=== PATIENT | male | born 1995 ===

== ENCOUNTER 2016-10-07 16:05 | Emergency (ER) | payer SELFPAY ==
--- NOTE | 2016-10-07 18:08 | UC ---
Back Pain HPI - History of Current Complaint Chief Complaint: UCBackPain Stated Complaint: BACK INJURY W/C Time Seen by Provider: 10/07/16 18:02 Hx Obtained From: Helmet Binder Onset/Duration: Sudden Onset - fell 1 week ago, Still Present Severity Initially: Severe Severity Currently: Moderate Back Pain: Is Discrete @ - low back left side and left middle upper back with bending over. Aggravating: Movement, Bending, Walking Alleviating: Rest Associated Signs And Symptoms: Positive: Negative - Allergies/Home Medications Allergies/Adverse Reactions: Allergies Allergy/AdvReac Type Severity Reaction Status Date / Time No Known Allergies Allergy Verified 10/07/16 17:37 PMH/Surg Hx/FS Hx/Imm Hx Previously Healthy: Yes Endocrine History Of: Denies: Thyroid Disease Cardiovascular History Of: Denies: Hypertension Respiratory History Of: Denies: Asthma - Surgical History Surgical History: None - Family History Known Family History: Negative: Cardiac Disease, Hypertension, Diabetes - Social History Occupation: Employed Full-time Lives: With Family Alcohol Use: None Substance Use Type: None Smoking Status (MU): Never Smoked Tobacco Have You Smoked in the Last Year: No Review of Systems Musculoskeletal: Arthralgia, Myalgia All Other Systems Reviewed And Are Negative: Yes Physical Exam Triage Information Reviewed: Yes Appearance: Well-Appearing, No Pain Distress, Well-Nourished Vital Signs: Initial Vital Signs Temp 98.0 F 10/07/16 17:27 Pulse 61 10/07/16 17:27 Resp 18 10/07/16 17:27 BP 135/53 10/07/16 17:27 Pulse Ox 100 10/07/16 17:27 Vital Signs Reviewed: Yes Eyes: Positive: Conjunctiva Clear Neck exam: Normal Respiratory Exam: Normal Cardiovascular Exam: Normal Musculoskeletal: Positive: Strength Intact, ROM Limited @ - back extension with pain, Other: - Tender Left SI and sacrum along with lower thoracic paraspinal muscles. Neurological Exam: Normal - DTR 2+ symmetric patella and achilles Psychological Exam: Normal Skin Exam: Normal Back Pain Course/Dx - Differential Dx/Diagnosis Differential Diagnosis/HQI/PQRI: Fracture, Strain Provider Diagnoses: Sacroiliitis. Contusion back Discharge - Discharge Plan Condition: Stable Disposition: HOME Prescriptions: Naproxen [Naproxen 500 MG TABS] 500 mg PO BID PRN #60 tab PRN Reason: Pain - Back Patient Education Materials: Sacroiliitis (ED), Contusion in Adults (ED), Naproxen (By mouth) Additional Instructions: Please follow up with a chiropractor on Sunday.
--- NOTE | 2016-10-07 18:46 | RAD ---
Indication: Back injury. 5 views of lumbar spine are reviewed. The vertebral bodies appear normal in height. Disc spaces all well-preserved. The pedicles appear intact. Spinal canal appears to be intact. IMPRESSION: No fracture of the lumbar spine is noted.
[2016-10-07] MEDS ORDERED: Naproxen TAB* 250 MG PO ONE (18:51)
[2016-10-07 19:15] VITALS: BP 136/50
== END 2016-10-07 19:21 | disposition home or self-care (01) ==
LOC: UCCORT 16:05
DX: M46.1 Sacroiliitis, not elsewhere classified (principal); S30.0XXA Contusion of lower back and pelvis, initial encounter; W01.0XXA Fall on same level from slipping, tripping and stumbling without subsequent striking against object, initial encounter
CPT/HCPCS: 72110; 99202; A9270-GY; G0463

== ENCOUNTER 2017-12-04 10:59 | Emergency (ER) | payer SELFPAY ==
[2017-12-04 12:09] VITALS: BP 122/59
--- NOTE | 2017-12-04 12:34 | RAD ---
INDICATION: Left testicular pain COMPARISON: None TECHNIQUE: Duplex interrogation of the scrotum was performed. FINDINGS: Testicles: The testicles are Normal in size and echogenicity. There is no evidence of testicular mass. There is symmetric flow on Doppler interrogation. There is no evidence of torsion.. The right testis measures 4.1 x 2.2 x 3.0 cm and the left 3.9 x 2.3 x 2.9 cm. There is symmetric flow on Doppler interrogation. Epididymides: There is no evidence of an epididymal mass. The epididymides are normal in size. There is symmetric flow on Doppler interrogation. The right epididymal head measures 1.5 x 1.3 cm and the left 1.2 x 1.2 cm. Hydroceles: None. Varicoceles: None. Other: None. IMPRESSION: NORMAL STUDY.
--- NOTE | 2017-12-04 12:36 | UC ---
Complaint Male HPI - HPI Summary HPI Summary: left testicular pain / left lower abdominal pain pain radiates to left testicle , + dysuria no fever, no chills , no n/v/d/c , no hernia, no known injury pt. does heavy work - History of Current Complaint Chief Complaint: UCGU Stated Complaint: PAIN IN LEFT LEG Time Seen by Provider: 12/04/17 11:42 Hx Obtained From: Patient Onset/Duration: Gradual Onset, Lasting Days - 2, Still Present Timing: Constant Severity Initially: Severe Severity Currently: Moderate Pain Intensity: 9 Location: Testicle - left Character: Burning Aggravating Factor(s): Nothing Alleviating Factor(s): Nothing Associated Signs And Symptoms: Positive: Dysuria. Negative: Diaphoresis, Back Pain, Fever, Hematuria, Constipation, Blood in Stool, Rectal Pain, Appetite, Nausea, Vomiting(# Of Episodes =), Penile Swelling, Penile Discharge - Allergies/Home Medications Allergies/Adverse Reactions: Allergies Allergy/AdvReac Type Severity Reaction Status Date / Time No Known Allergies Allergy Verified 12/04/17 12:09 PMH/Surg Hx/FS Hx/Imm Hx Previously Healthy: Yes - Surgical History Surgical History: None - Family History Known Family History: Negative: Cardiac Disease, Hypertension, Diabetes - Social History Alcohol Use: None Substance Use Type: None Smoking Status (MU): Never Smoked Tobacco Have You Smoked in the Last Year: No Review of Systems Constitutional: Negative Skin: Negative Eyes: Negative ENT: Negative Respiratory: Negative Cardiovascular: Negative Gastrointestinal: Abdominal Pain Genitourinary: Dysuria Is Patient Immunocompromised?: No All Other Systems Reviewed And Are Negative: Yes Physical Exam Triage Information Reviewed: Yes Appearance: Well-Appearing, No Pain Distress, Well-Nourished Vital Signs: Initial Vital Signs Temp 98.8 F 12/04/17 11:30 Pulse 69 12/04/17 11:30 Resp 16 12/04/17 11:30 BP 122/59 12/04/17 11:30 Pulse Ox 100 12/04/17 11:30 Vital Signs Reviewed: Yes Eyes: Positive: Conjunctiva Clear ENT Exam: Normal ENT: Positive: Normal ENT inspection, Hearing grossly normal, Pharynx normal Neck: Positive: Supple, Nontender, No Lymphadenopathy Respiratory: Positive: Chest non-tender, Lungs clear, Normal breath sounds Cardiovascular: Positive: RRR, No Murmur, Pulses Normal Abdomen Description: Positive: Soft, Other: - left lower abd pain ,. Negative: Bruit, CVA Tenderness (R), CVA Tenderness (L), Distended, Guarding Bowel Sounds: Negative: Present UC Physical Exam Vital Signs On Initial Exam: Initial Vitals Temp Pulse Resp BP Pulse Ox 98.8 F 69 16 122/59 100 12/04/17 11:30 12/04/17 11:30 12/04/17 11:30 12/04/17 11:30 12/04/17 11:30 - Genitalia Exam Male Genitalia Cont.: Left: Testicles Tender, Bilateral: Testicles Descended, Testicles w/o Swelling, Scrotum Without Erythema Diagnostics - Laboratory Diagnostic Studies Completed/Ordered: testicular US: IMPRESSION: NORMAL STUDY. Complaint Male Course/Dx - Differential Dx/Diagnosis Provider Diagnoses: UTI. left testicular pain Discharge - Sign-Out/Discharge Documenting (check all that apply): Discharge/Admit/Transfer - Discharge Plan Condition: Stable Disposition: HOME Prescriptions: Sulfamethox/Trimethoprim DS* [Bactrim DS 800/160 TAB*] 1 tab PO BID #14 tab Patient Education Materials: Urinary Tract Infection in Men (ED), Testicle Pain (ED) Referrals: No Primary Care Phys,NOPCP [Primary Care Provider] - 7 Days - Billing Disposition and Condition Condition: STABLE Disposition: Home
== END 2017-12-04 12:47 | disposition home or self-care (01) ==
LOC: UCCORT 10:59
DX: N39.0 Urinary tract infection, site not specified (principal); N50.812 Left testicular pain
CPT/HCPCS: 76870; 81003; 87086; 87491; 87591; 99212; G0463